=== PATIENT | female | born 2000 | race Caucasian/White ===

== ENCOUNTER 2020-07-04 11:06 | Emergency (ER) | payer MEDICAID ==
[~2020-07-04] VITALS: Ht 162.6 cm; Wt 67.6 kg
[2020-07-04 11:10] VITALS: Ht 162.6 cm; Wt 67.6 kg
[2020-07-04 13:18] VITALS: BP 100/64
== END 2020-07-04 13:18 | disposition home or self-care (01) ==
LOC: ED 11:06
DX: O20.0 Threatened abortion (principal); Z3A.01 Less than 8 weeks gestation of pregnancy; V49.59XA Passenger injured in collision with other motor vehicles in traffic accident, initial encounter; Y93.89 Activity, other specified; Y92.89 Other specified places as the place of occurrence of the external cause; Y99.8 Other external cause status